=== PATIENT | male | born 1965 | race Hispanic/Latino ===

== ENCOUNTER → 2019-12-20 | Outpatient (CLI) | payer MEDICAID ==
[2019-12-20 09:00] LABS: BASOPHILS % (AUTO) 0.4 % (0.0-5.0); EOSINOPHILS % (AUTO) 1.1 % (0.0-8.0); HEMATOCRIT 38.5 % (42-54); MEAN CORPUSCULAR HEMOGLOBIN 34.9 pg (27.0-33.0); MEAN CORPUSCULAR HGB CONC 34.8 g/dL (32.0-36.0); MEAN CORPUSCULAR VOLUME 100.3 fL (79-99); MONOCYTES % (AUTO) 13.7 % (3.0-13.0); NEUTROPHILS % (AUTO) 53.6 % (40.0-77.0); PLATELET COUNT (AUTO) 95 K/uL (130-400); RED BLOOD CELL COUNT(AUTO) 3.84 MIL/uL (4.50-6.20); RED CELL DISTRIBUTION WIDTH 15.4 % (11.0-15.5); WHITE BLOOD COUNT (AUTO) 4.5 K/uL (4.8-10.8)
[2019-12-20 09:15] LABS: ALBUMIN 3.4 g/dL (3.5-5.0); BILIRUBIN,TOTAL 0.4 mg/dL (0.2-1.0); CREATININE 0.7 mg/dL (0.5-1.5); TOTAL PROTEIN, SERUM 7.4 g/dL (6.0-8.3)
[2019-12-20 09:55] LABS: INR 1.21 (0.85-1.15); PROTHROMBIN TIME 12.6 SEC (9.6-11.6)
[2019-12-21 11:11] LABS: HEPATITIS Bs ANTIGEN SCREEN P Negative (Negative)
== END | disposition home or self-care (01) ==
LOC: RAH 08:20
PROVIDERS: ATTEND Internal Medicine
DX: B18.2 Chronic viral hepatitis C (principal)
CPT/HCPCS: 36415; 76700; 80053; 85025; 85610; 86701; 86704; 86706; 87340; 87390; 87522; 87902

== ENCOUNTER 2020-01-25 06:23 | Day surgery (SDC) | payer MEDICAID ==
[~2020-01-25] VITALS: Ht 167.6 cm; Wt 68.0 kg
[~2020-01-25 06:23] MED LIST: LISI-617 PO; SODIUM CHLORIDE 0.9% 1000ML 1,000 ML IV ONE; TRAM50TA4 PO
[2020-01-25 08:12] VITALS: BP 153/90
--- NOTE | 2020-01-25 09:07 | NUR ---
NURSING REGARDING BEING UNABLE TO START IV AFTER MULTIPLE ATTEMPTS BY NURSES AND CRNAS. PT DOESNT WANT TO CONTINUE TO TRY ANYMORE, DR MANUEL NOTIFIED AND PT TO BE RESCHEDULED FOR FUTURE TIME, PT GOT DRESSED AND OFFERED COFFEE AND..... Addendum: 01/25/20 at 1011 by INDER GLORIA RN ESCORTED TO FRONT LOBBY TO WAIT FOR RIDE
== END 2020-01-25 09:20 | disposition home or self-care (01) ==
LOC: DAH 06:23
PROVIDERS: ATTEND Internal Medicine Gastroenterology
DX: Z12.11 Encounter for screening for malignant neoplasm of colon (principal); Z53.8 Procedure and treatment not carried out for other reasons; R12 Heartburn; Z79.899 Other long term (current) drug therapy; Z72.89 Other problems related to lifestyle
CPT/HCPCS: J7030